=== PATIENT | female | born 1955 | race Caucasian/White ===

== ENCOUNTER 2025-05-21 08:59 | Outpatient (CLI) | payer MEDICARE, SELFPAY ==
--- NOTE | 2025-05-21 09:00 | MM_ITS ---
WS: [id number] BILATERAL 3D TOMOSYNTHESIS DIGITAL SCREENING MAMMOGRAPHY WITH CAD CLINICAL INFORMATION: SCREENING HISTORY: Screening mammogram. No current complaints. COMPARISON: Baseline TECHNIQUE: Bilateral CC and MLO views. FINDINGS: Scattered fibroglandular densities bilaterally. Dense spiculated tissue subareolar RIGHT breast. Recommend further evaluation with subareolar RIGHT breast ultrasound Unremarkable LEFT breast. MM/MM scr tomosynthesis [id number] IMPRESSION: DENSITY: There are scattered areas of fibroglandular density. BI-RADS: 0 - Incomplete: Need additional imaging evaluation. FOLLOW UP: Need Additional Imaging Recommend further evaluation with subareolar RIGHT breast ultrasound
== END 2025-05-21 09:00 | disposition home or self-care (01) ==
LOC: MOBLMAM 09:03
PROVIDERS: PCP Nurse Practitioner; Visit Provider Nurse Practitioner
DX: Z12.31 Encounter for screening mammogram for malignant neoplasm of breast (principal); R92.30 Dense breasts, unspecified
CPT/HCPCS: 77063; 77067